=== PATIENT | female | born 1955 | race African-American/Black ===

== ENCOUNTER 2017-12-04 12:33 | Emergency (ER) | payer OTHER ==
[~2017-12-04] VITALS: Ht 154.9 cm; Wt 88.5 kg
[~2017-12-04 12:33] MED LIST: CARVEDILOL12.5 M1 PO; CARVEDILOL6.25 M1 PO; CLOPIDOGREL75 M1 PO; CRESTOR10 M1 PO; ENTRESTO 24 MG1 EACH PO; ENTRESTO 49 MG1 EACH PO; FUROSEMIDE80 M1 PO; IBU-4400 MG PO; OMEPRAZOLE20 M2 PO; PREDNISONE20 M1 PO; PROAIR HFA8.5 GM INH; PROVENTIL HFA6.7 GM INH; TYLENOL WITH C1 EACH PO; ZITHROMAX250 M2 PO; ZOFRAN4 M1 SL
--- NOTE | 2017-12-04 14:06 | ED DYSPNEA/ASTHMA COMPLAINT ---
History of Present Illness General Chief Complaint: Dyspnea (COPD, CHF, Other) Stated Complaint: SOB, X 2 DAY Source: patient, family, old records Exam Limitations: no limitations Vital Signs & Intake/Output Vital Signs & Intake/Output Vital Signs Date Time Temp Pulse Resp B/P B/P Pulse O2 O2 Flow FiO2 Mean Ox Delivery Rate 12/04 1514 98.2 79 20 116/82 99 Room Air 12/04 1426 98.5 75 18 117/86 99 Room Air Room Air 12/04 1239 98.0 87 20 123/83 98 Room Air Allergies Coded Allergies: NO KNOWN ALLERGIES (NONE 12/04/17) Reconcile Medications Albuterol Sulfate (Proair Hfa) 90 MCG HFA.AER.AD 2 PUF INH Q4-6 PRN PRN copd Albuterol Sulfate (Proventil Hfa) 90 MCG HFA.AER.AD 2 PUF INH Q4 PRN wheezing Carvedilol 12.5 MG TABLET 1 TAB PO BID HEART/BP (Reported) Furosemide 80 MG TABLET 1 TAB PO DAILY CARDIAC (Reported) Omeprazole 20 MG CAPSULE.DR 1 CAP PO DAILY GERD (Reported) Prednisone 20 MG TABLET 1 TAB PO BID copd Rosuvastatin Calcium (Crestor) 10 MG TABLET 1 TAB PO DAILY CHOLESTEROL ( Reported) Sacubitril/Valsartan (Entresto 49 MG-51 MG Tablet) 49 MG-51 MG TABLET 1 TAB PO DAILY HEART (Reported) Triage Note: PT TO ED C/O SOB, DIFF BREATHING, WHEEZING AND FEELING LIGHTHEADED. H/O COPD, USING INHALERS WITH NO RELIEF. RA SATS 98%, NO OBVIOUS RESP DISTRESS NOTED. PT STATES "IT'S THE HEAT". Triage Nurses Notes Reviewed? yes Onset: Last night Duration: hour(s):, constant, continues in ED, getting worse Timing: recent history Severity: moderate Activities at Onset: activity Prior Episodes/Possible Cause: chronic episodes Modifying Factors: Improves With: rest. Worsens With: movement. Associated Symptoms: cough, wheezing, weakness LMP (ages 10-50): post menopausal : No Patient currently breastfeeds: No HPI: 1 day prior to admission patient complains of wheezing dyspnea on exertion fatigue. She denies fever chills nausea vomiting diarrhea abdominal pain chest pain headache dysuria rash bleeding. Past History Travel History Traveled to [place] past 21 day No Medical History Any Pertinent Medical History? 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 No Review of Systems Review of Systems Constitutional: Reports: no symptoms. EENTM: Reports: no symptoms. Respiratory: Reports: see HPI, short of breath, wheezing. Cardiovascular: Reports: see HPI, edema. GI: Reports: no symptoms. Genitourinary: Reports: no symptoms. Musculoskeletal: Reports: no symptoms. Skin: Reports: no symptoms. Neurological/Psychological: Reports: no symptoms. Hematologic/Endocrine: Reports: no symptoms. Immunologic/Allergic: Reports: no symptoms. All Other Systems: Reviewed and Negative Physical Exam Physical Exam General Appearance: well developed/nourished, alert, awake, anxious, mild distress, obese Head: atraumatic, normal appearance Eyes: Bilateral: normal appearance, PERRL, EOMI. Ears, Nose, Throat: normal pharynx, normal ENT inspection, hearing grossly normal Neck: normal inspection, supple, full range of motion, no midline tenderness Respiratory: chest non-tender, decreased breath sounds, wheezing Cardiovascular: regular rate/rhythm, normal peripheral pulses, norml femoral pulses equa Peripheral Pulses: 4+ carotid (R), 4+ carotid (L) Gastrointestinal: normal bowel sounds, soft, non-tender, no organomegaly Extremities: normal capillary refill, pedal edema (Trace) Neurologic/Psych: no motor/sensory deficits, awake, alert, oriented x 3, normal gait, normal mood/affect, environmental program manager II-XII nml as tested Skin: intact, normal color, warm/dry Lymphatic: no anterior cervical angelo Core Measures ACS in differential dx? No CVA/TIA Diagnosis No Sepsis Present: No Sepsis Focused Exam Completed? No Progress Differential Diagnosis: asthma, CHF, COPD, pneumonia Plan of Care: Orders Procedure Date/time Status TROPONIN LEVEL 12/04 1333 Complete MAGNESIUM 12/04 1333 Complete COMPREHENSIVE METABOLIC PANEL 12/04 1333 Complete CBC WITHOUT DIFFERENTIAL 12/04 1333 Complete B-TYPE NATRIURETIC PEP (BNP) 12/04 1333 Complete EKG 12/04 1333 Active Current Medications Sig/Emmie Start time Last Medication Dose Stop Time Status Admin Furosemide 80 MG ONE ONE 12/04 1530 AC (Lasix) 12/04 1531 Laboratory Tests 12/04/17 1412: Anion Gap 11, Estimated GFR > 60, BUN/Creatinine Ratio 15.0, Glucose 71, Calcium 9.3, Magnesium 2.1, Total Bilirubin 0.7, AST 24, ALT 22, Alkaline Phosphatase 56 , Troponin I < 0.01, [id number] Pept 1760 H, Total Protein 7.3, Albumin 4.2, Globulin 3.1, Albumin/Globulin Ratio 1.4, CBC w Diff NO MAN DIFF REQ, RBC 4.09 L, MCV 89.4, MCH 29.3, MCHC 32.8 L, RDW 13.6, MPV 9.0, Gran % 49.8, Lymphocytes % 38.7, Monocytes % 9.1, Eosinophils % 1.4, Basophils % 1.0, Absolute Granulocytes 3.4, Absolute Lymphocytes 2.7, Absolute Monocytes 0.6, Absolute Eosinophils 0.1, Absolute Basophils 0.1 Diagnostic Imaging: Viewed by Me: Radiology Read. Discussed w/RAD: Radiology Read. CXR Impression: Stable cardiomegaly without acute pulmonary pathology. Initial ED EKG: pacemaker rhythm Prior EKG: unchanged Rhythm Strip: normal sinus rhythm Departure Departure Time of Disposition: 1513 Disposition: HOME OR SELF CARE Condition: Stable Clinical Impression Primary Impression: COPD with exacerbation Referrals: Mana Prescott APRN (PCP/Family) Departure Forms: Customer Survey General Discharge Information Prescriptions: Current Visit Scripts Prednisone 1 TAB PO BID #10 TAB Albuterol Sulfate (Proair Hfa) 2 PUF INH Q4-6 PRN PRN copd #1 INHAL Critical Care Note Critical Care Note Critical Care Time: non-applicable
[2017-12-04 14:23] LABS: ABSOLUTE BASOPHIL COUNT 0.1 /CUMM (0.0-0.2); ABSOLUTE EOSINOPHIL COUNT 0.1 /CUMM (0.0-0.7); ABSOLUTE GRANULOCYTE CT 3.4 /CUMM (1.4-6.5); ABSOLUTE LYMPH COUNT 2.7 /CUMM (1.2-3.4); ABSOLUTE MONOCYTE COUNT 0.6 /CUMM (0.10-0.60); EOSINOPHIL % 1.4 % (0-5); GRANULOCYTE % 49.8 % (42.2-75.2); HEMATOCRIT 36.6 % (37-47); MEAN CORPUSCULAR HGB 29.3 PG (27.0-31.0); MEAN CORPUSCULAR HGB CONC 32.8 G/DL (33.0-37.0); MEAN CORPUSCULAR VOLUME 89.4 FL (81.0-99.0); PLATELET COUNT 197 /CUMM (130-400); RBC DISTRIBUTION WIDTH 13.6 % (11.5-14.5); RED BLOOD CELL CT 4.09 /CUMM (4.20-5.40); WHITE BLOOD CELL COUNT 6.9 /CUMM (4.8-10.8)
--- NOTE | 2017-12-04 14:51 | RADIOLOGY REPORT ---
EXAMINATION: XR CHEST CLINICAL INFORMATION: COPD. Cardiomyopathy. Cough and shortness of breath. COMPARISON: Chest x-ray 08/28/2017 TECHNIQUE: 2 views of the chest were obtained. FINDINGS: Cardiomegaly. Stable orientation of 3-lead AICD. Lungs are adequately aerated. No lobar consolidation. No gross pleural effusion. [id number] diffuse degenerative changes of the spine. IMPRESSION: Stable cardiomegaly without acute pulmonary pathology.
[2017-12-04 15:14] VITALS: BP 116/82
[2017-12-04] MEDS ORDERED: PROAIR HFA8.5 GM INH (15:16)
[2017-12-04] MEDS ORDERED: PREDNISONE20 M1 PO (15:16)
== END 2017-12-04 15:33 ==
LOC: ERH 12:33
PROVIDERS: Emergency Medicine
DX: J44.1 Chronic obstructive pulmonary disease with (acute) exacerbation (principal); I10 Essential (primary) hypertension; I50.9 Heart failure, unspecified
CPT/HCPCS: 1263; 71046; 93005; 93010; 96374; 96375; J2930